=== PATIENT | male | born 1980 | race Caucasian/White ===

== ENCOUNTER 2018-10-20 10:29 | Emergency (ER) | payer OTHER ==
[~2018-10-20] VITALS: Ht 190.5 cm; Wt 90.0 kg
[2018-10-20] MEDS ORDERED: ESCITALOPRAM OX10 MG PO (10:39)
[2018-10-20] MEDS ORDERED: TORADOL PO (11:43)
[2018-10-20 11:47] VITALS: BP 141/88
== END 2018-10-20 11:57 | disposition home or self-care (01) | DRG 563 ==
LOC: ED 10:29
PROC: 0RSWXZZ Reposition Right Finger Phalangeal Joint, External Approach (ICD-10-PCS; principal; 2018-10-20)
DX: S63.282A Dislocation of proximal interphalangeal joint of right middle finger, initial encounter (principal); X50.0XXA Overexertion from strenuous movement or load, initial encounter; Y93.89 Activity, other specified